=== PATIENT | male | born 1960 | race Caucasian/White ===

== ENCOUNTER → 2022-12-10 | Outpatient (CLI) | payer OTHER ==
[2022-12-10 09:56] LABS: Basophils # (A) 0.1 k/uL (0-0.2); Basophils % (A) 1 %; Eosinophils # (A) 0.5 k/uL (0-0.7); Eosinophils % (A) 6 %; HCT 49.1 % (39.0-53.0); HGB 15.8 gm/dL (13.0-17.5); Lymphocytes # (A) 1.7 k/uL (1.0-4.8); Lymphocytes % (A) 19 %; MCH 28.9 pg (25.0-35.0); MCHC 32.1 g/dL (31.0-37.0); Mean Platelet Volume 7.9; Monocytes # (A) 0.4 k/uL (0-1.0); Monocytes % (A) 5 %; Neutrophils % (A) 68 %; Platelet Count 319 k/uL (150-450); RBC 5.45 m/uL (4.30-5.90); RDW 14.1 % (11.5-15.5); WBC 8.9 k/uL (3.8-10.6)
[2022-12-10 10:13] LABS: INR 0.9 (<1.2); Partial Thromboplastin Time 23.8 sec (22.0-30.0); Prothrombin Time 9.9 sec (9.0-12.0)
[2022-12-10 10:16] LABS: Potassium 5.7 mmol/L (3.5-5.1)
== END | disposition home or self-care (01) ==
LOC: LABWHC1 09:27
PROVIDERS: ATTEND Internal Medicine Nephrology
DX: N18.4 Chronic kidney disease, stage 4 (severe) (principal)
CPT/HCPCS: 36415; 80051; 82565; 84520; 85025; 85610; 85730

== ENCOUNTER 2022-12-11 08:02 | Day surgery (SDC) | payer OTHER ==
[2022-12-11] MEDS ORDERED: ALPRAZolam 0.5 MG TAB PO PRN (08:38)
[2022-12-11] MEDS ORDERED: HYDROmorphone 0.5 MG/0.5 ML SYRINGE IVP PRN (08:38)
[2022-12-11 08:56] VITALS: RESP 16
[2022-12-11] MEDS ORDERED: DESMOPRESSIN ACETATE 32 MCG in SODIUM CHLORIDE 0.9% 50 ML IV ONE (09:00)
[2022-12-11] MEDS ORDERED: MICROFIBRILLAR COLLAGEN HEMOST 0.5 GM PACK TOPICAL ONE (09:16)
[2022-12-11 10:59] VITALS: TEMP 98
[2022-12-11] MEDS ORDERED: HYDROcodone/APAP 5-325MG 1 EACH TAB PO PRN (11:04)
--- NOTE | 2022-12-11 12:08 | US ---
Ultrasound-guided kidney biopsy Date: 12/11/2022 History: Chronic kidney disease Comparison: None The patient was brought to the US room after coagulation profile was checked and deemed appropriate. The risks and benefits of the procedure were explained to the patient, and the patient's questions we re answered. Informed consent was obtained. Limited ultrasound demonstrates small echogenic kidneys with thinned renal cortices. There is no hydr onephrosis. A critical pause was performed. Sterile field was prepared, and lidocaine was used for local anesthes ia. Under direct ultrasound guidance using an 18-gauge coaxial biopsy needle, 6 core specimens were o btained of the lower pole cortex in the left kidney. Several specimens yielded partial fragments. The patient tolerated the procedure well with no apparent complications. A postprocedural scan throug h the region of interest demonstrated no acute complications. After the procedure, the patient was observed for a short period of time, again with no complications . Impression: Successful ultrasound-guided left renal biopsy.
[2022-12-11 14:49] VITALS: BP 166/88; PULSE 66
== END 2022-12-11 14:50 | disposition home or self-care (01) ==
LOC: RADPROMAIN 08:02
PROVIDERS: ATTEND Internal Medicine Nephrology
DX: I12.9 Hypertensive chronic kidney disease with stage 1 through stage 4 chronic kidney disease, or unspecified chronic kidney disease (principal); N18.4 Chronic kidney disease, stage 4 (severe); E87.20 Acidosis, unspecified; N25.81 Secondary hyperparathyroidism of renal origin; I48.91 Unspecified atrial fibrillation; J44.9 Chronic obstructive pulmonary disease, unspecified; Z87.891 Personal history of nicotine dependence; F10.20 Alcohol dependence, uncomplicated; F12.90 Cannabis use, unspecified, uncomplicated; Z79.899 Other long term (current) drug therapy; Z80.3 Family history of malignant neoplasm of breast; Z79.51 Long term (current) use of inhaled steroids; Z98.890 Other specified postprocedural states
CPT/HCPCS: 86900; 86901; 86850; 50200; 76942; J2597